=== PATIENT | male | born 1980 | race Caucasian/White ===

== ENCOUNTER 2020-02-23 23:10 | Emergency (ER) | payer SELFPAY ==
[~2020-02-23] VITALS: Ht 167.6 cm; Wt 83.0 kg
[2020-02-23 23:10] VITALS: BP 139/82
--- NOTE | 2020-02-23 23:20 | NUR ---
PT AMBULATED OUT TO LOBBY, VSS
--- NOTE | 2020-02-23 23:55 | NUR ---
AMBULATED TO ER BED 6
[2020-02-24] MEDS ORDERED: KETOROLAC 60 MG/2 ML VIAL IM ONE
--- NOTE | 2020-02-24 00:13 | NUR ---
PT MEDICATED WITH TORADOL IM . TOLERATED WELL. NADR
--- NOTE | 2020-02-24 00:14 | NUR ---
39M PT PRESENTS TO ED WITH C/O HEADACHE X 3 DAYS. STATES THAT HEADACHE STARTED ON FRIDAY AND THAT IT HAS BEEN PROGRESSIVELY GETTING WORSE. DENIES LOC. DENIES BLURRY VISION. DENIES SOB/COUGH PT WEARING MASK. PLACED ON CARDIAC MONITORING. [facility] HX: HTN
--- NOTE | 2020-02-24 01:15 | NUR ---
AT BEDSIDE EXAMINING PT
[2020-02-24] MEDS ORDERED: MORPHINE SULFATE 4 MG/ML SYR IM ONE (01:30)
--- NOTE | 2020-02-24 01:46 | NUR ---
Patient discharged with v/s stable. Written and verbal after care instructions given and explained. Patient alert, oriented and verbalized understanding of instructions. Ambulatory with steady gait. All questions addressed prior to discharge. ID band removed. Patient advised to follow up with PMD. Rx of J CARLOS PIERRE given. Patient educated on indication of medication including possible reaction and side effects. Opportunity to ask questions provided and answered.
[2020-02-24 01:47] VITALS: BP 132/86
== END 2020-02-24 01:46 | disposition home or self-care (01) ==
LOC: MED 23:10
DX: R51 Headache (principal); J32.9 Chronic sinusitis, unspecified; I10 Essential (primary) hypertension; Z90.49 Acquired absence of other specified parts of digestive tract
CPT/HCPCS: 96372; 99284; J1885; J2270